=== PATIENT | female | born 1935 | race Caucasian/White ===

== ENCOUNTER 2018-04-15 08:52 | Emergency (ER) | payer MEDICARE, BC ==
[2018-04-15 09:19] VITALS: BP 154/61
--- NOTE | 2018-04-15 09:55 | RAD ---
HISTORY: thumb pain, unknown trauma COMPARISONS: None VIEWS: 7 , Frontal, lateral, and oblique views of the left hand and first digit of the left hand. Evaluation of the fourth digit is limited by metallic jewelry. FINDINGS: BONE DENSITY: Normal. BONES: There is no displaced fracture. JOINTS: There is moderate osteoarthritis of the first CMC joint and to lesser extent of the first interphalangeal joint. ALIGNMENT: There is no dislocation. SOFT TISSUES: Unremarkable. OTHER FINDINGS: There is a punctate radiopaque foreign body in the soft tissues along the volar aspect of the second MCP joint measuring less than 0.1 cm in size. IMPRESSION: 1. OSTEOARTHRITIS. 2. PUNCTATE RADIOPAQUE FOREIGN BODY IN THE SOFT TISSUES ALONG THE VOLAR ASPECT OF THE SECOND MCP JOINT MEASURING LESS THAN 0.1 CM IN SIZE. 3. NO ACUTE OSSEOUS INJURY. IF SYMPTOMS PERSIST, RECOMMEND REPEAT IMAGING.
--- NOTE | 2018-04-15 10:13 | UC ---
Upper Extremity HPI - HPI Summary HPI Summary: Pt presents to with son. Yesterday patient developed some erythema and discomfort at the base of her left thumb. Patient states it is an achy sensation. Worse with movement. Patient with focal edema. No open wounds. No drainage. No trauma. Patient denies wrist or elbow pain. No palmar pain. No analgesia taken. Patient without a history of gout. Patient denies paresthesias or hand weakness. Patient's medications reviewed this visit. - History of Current Complaint Chief Complaint: UCUpperExtremity Stated Complaint: LEFT THUMB COMPLAINT Time Seen by Provider: 04/15/18 09:54 Hx Obtained From: Patient, Family/[employer]atch [place] Cleaner Hx From Patient Unobtainable Due To: Altered Mental Status Pain Intensity: 8 - Allergies/Home Medications Allergies/Adverse Reactions: Allergies Allergy/AdvReac Type Severity Reaction Status Date / Time Sulfa (Sulfonamide Allergy Unknown Verified 04/15/18 09:15 Antibiotics) Reaction Details environmental Allergy See Comment Uncoded 04/15/18 09:15 Home Medications: Home Medications Cholecalciferol TAB* [Vitamin D TAB*] 1,000 unit PO DAILY 04/15/18 [History Confirmed 04/15/18] Docusate CAP* [Colace Cap*] 100 mg PO BID PRN 04/15/18 [History Confirmed ] Levothyroxine TAB* [Synthroid TAB*] 88 mcg PO DAILY 04/15/18 [History Confirmed 04/15/18] Psyllium SIMON* [Metamucil SIMON*] 1 pkt PO DAILY 04/15/18 [History Confirmed ] Quinapril/Hydrochlorothiazide [Quinapril/Hydrochlorothia 20-12.5 mg] 1 tab PO DAILY 04/15/18 [History Confirmed 04/15/18] Rivastigmine PATCH 4.6 MG(NF) [Exelon(NF)] 1 patch TRANSDERM DAILY 04/15/18 [ History Confirmed 04/15/18] Vitamin THERAPEUTIC TAB* [Theragran TAB*] 1 tab PO DAILY 04/15/18 [History Confirmed 04/15/18] PMH/Surg Hx/FS Hx/Imm Hx Previously Healthy: Yes Psychological History: Other Other Psychological History: dementia - Surgical History Surgical History: Yes Surgery Procedure, Year, and Place: Total Hysterectomy, 1976 - Family History Known Family History: Positive: Hypertension - Social History Lives: With Family Alcohol Use: None Substance Use Type: None Smoking Status (MU): Heavy Every Day Tobacco Smoker Amount Used/How Often: 1/2 PPD Length of Time of Smoking/Using Tobacco: Since Age 18 Household Exposure Type: Cigarettes Review of Systems Constitutional: Negative Skin: Other - Erythema ( Musculoskeletal: Other: - Left thumb All Other Systems Reviewed And Are Negative: Yes Physical Exam - Summary Physical Exam Summary: Vital Signs Reviewed: Yes A+Ox3, no distress Eyes: Conjunctiva Clear, BELLE. EOM intact and full ENT: Hearing grossly normal TM x 2 clear, mmoist, uvula midline, no exudate, no erythema Neck: Positive: Supple Respiratory: Positive: No respiratory distress, No accessory muscle use + CTA throughout no w/r Cardiovascular: RRR nl s1, s2 no m/r CBT <2 sec 2+ radial,ulnar CBT < 2 sec all digits abd soft + BS nt/nd no guarding, no distension Musculoskeletal Exam: ALICIA x 4 without difficulty Strength Intact, ROM Intact + flex/ext elbow + pronate/supinat + flex/ext wrist no pain carpals mild discomfort thumb MCP with direct palpation full fle/ext mcp. ip of thumb and 2nd digit Neurological: Positive: Alert, + sensation throughout Psychological: Positive: Normal Response To Family Skin: Positive: no rash, no ecchymosism mild erythema dorsum left thumb MCP no open wound, no abraison, no ecchymosis mild edema dorsum same joint close review and inspection of hand at the area of concern for foreign body an x -ray revealed no open wounds no tenderness no edema no puncture wounds no concern for acute foreign body Triage Information Reviewed: Yes Vital Signs: Initial Vital Signs Temp 97.6 F 04/15/18 09:12 Pulse 72 04/15/18 09:12 Resp 14 04/15/18 09:12 BP 154/61 04/15/18 09:12 Pulse Ox 98 04/15/18 09:12 Diagnostics - Radiology No standard instances Xray Interpretation: Positive (See Comments) - Patient Name: BRENNA ROJAS Medical Record#: [id number] Ordering Physician: Danielle Segovia MD Acct.#: [id number] : 1935 Age: 82 Sex: F Location: [facility] Exam Date: 04/15/18934 ADM Status: REG ER Order Information: THUMB LEFT Accession Number: [id number] CPT: 00366 HISTORY: thumb pain, unknown trauma COMPARISONS: None VIEWS: 7 , Frontal, lateral, and oblique views of the left hand and first digit of the left hand. Evaluation of the fourth digit is limited by metallic jewelry. FINDINGS: BONE DENSITY: Normal. BONES: There is no displaced fracture. JOINTS: There is moderate osteoarthritis of the first CMC joint and to lesser extent of the first interphalangeal joint. ALIGNMENT: There is no dislocation. SOFT TISSUES: Unremarkable. OTHER FINDINGS: There is a punctate radiopaque foreign body in the soft tissues along the volar aspect of the second MCP joint measuring less than 0.1 cm in size. IMPRESSION: 1. OSTEOARTHRITIS. 2. PUNCTATE RADIOPAQUE FOREIGN BODY IN THE SOFT TISSUES ALONG THE VOLAR ASPECT OF THE SECOND MCP JOINT MEASURING LESS THAN 0.1 CM IN SIZE. 3. NO ACUTE OSSEOUS INJURY. IF SYMPTOMS PERSIST, RECOMMEND REPEAT IMAGING. <Electronically signed by Ander Montes MD in OV> 04/15/18951 Dictated By: Ander Montes MD Dictated Date/Time: 04/15/18951 Transcribed Date/Time: 04/15/18949 Copy to: CC: Danielle Segovia MD; Dayanara Hutton MD Imaging - [facility] Imaging [facility]gent [facility] Imaging [facility] [address] [address] ph ) ph ([phone]) ph ([phone]) This report is only to be considered final once signed by the Provider(s) as displayed in the "< Electronically Signed by >" field (s). Absence of a signature indicates the report is in a draft status and still needs to be finalized. In the event this document was created by someone other than the signing Provider, the individual initiating the document will be listed in the "Entered by:" or "Dictated by:" garzon. 1 of 1 Radiology Interpretation Completed By: Radiologist Upper Extremity Course/Dx - Course Course Of Treatment: Patient presents for focal area of erythema and swelling of the left thumb on the dorsum of the hand. Patient's right-hand dominant. Patient denies any trauma. Patient with mild focal tenderness. Patient does have full range of motion. No red streaking no fluctuance. Differential includes early cellulitis versus gout versus tendinitis. Will start patient on antibiotics prophylactically for infection. We'll draw blood work to include a gassy. Recommend patient can take some Motrin 400 mg with food spaced every 6- 8 hours. Patient placed in a splint and recommend follow-up with some comfortable with plan. Strict return precautions discussed. BP elevated - recommend PCp fu - Differential Dx/Diagnosis Provider Diagnoses: left thumb erythema Discharge - Sign-Out/Discharge Documenting (check all that apply): Patient Departure All imaging exams completed and their final reports reviewed: Yes - Discharge Plan Condition: Stable Disposition: HOME Prescriptions: Amoxicillin PO (*) [Amoxicillin 500 MG CAP*] 500 mg PO Q12H #20 cap Patient Education Materials: Cellulitis (ED), Gout (ED) Referrals: Nicanor Sam MD [Medical Doctor] - Dayanara Hutton MD [Primary Care Provider] - Additional Instructions: The doctor that evaluated think that her symptoms are related to gout. However , he also being place an antibiotic in case there is infection as well. Take antibiotics twice a day as prescribed. Exam ox may cause diarrhea. This is normal. Eating yogurt taking probiotics may help. Wear splint as much as possible for comfort and support Okay to apply ice wrapped in a towel 20 minutes 2-3 times a day. You have blood work drawn today. This lab work takes to 3 days to come back. You will receive a call from her care fast food team member if there are concerning results. Elevate her arm to help with swelling and pain. Okay to take ibuprofen (Motrin, Advil) 400 mg every [address] Contact Dr. Sam's office to schedule follow-up appointment this week. Contact Dr. Sam, return here over the emergency department with questions or concerns. - Billing Disposition and Condition Condition: STABLE Disposition: Home
[2018-04-15 13:54] LABS: ABS Basophils 0.1 10^3/ul (0-0.2); ABS Eosinophils 0.4 10^3/ul (0-0.6); ABS Lymphocytes 2.1 10^3/ul (1.0-4.8); ABS Monocytes 1.2 10^3/ul (0-0.8); ABS Neutrophils 6.7 10^3/ul (1.5-7.7); ABS Nucleated RBC 0 10^3/ul; Eosinophil % 3.4 % (0-6); Hematocrit 40 % (35-47); Hemoglobin 13.8 g/dl (12.0-16.0); Mean Corpuscular HGB Conc 34 g/dl (31-36); Mean Corpuscular Hemoglobin 32 pg (27-31); Mean Corpuscular Volume 93 fL (80-97); Mean Platelet Volume 9.1 um3 (7.4-10.4); Nucleated Red Blood Cells % 0.2; Platelet Count 265 10^3/ul (150-450); Red Blood Count 4.35 10^6/ul (4.00-5.40); Red Cell Distribution Width 14 % (10.5-15); White Blood Count 10.4 10^3/ul (3.5-10.8)
== END 2018-04-15 10:30 | disposition home or self-care (01) ==
LOC: UCCORT 08:52
DX: L53.9 Erythematous condition, unspecified (principal); M79.5 Residual foreign body in soft tissue; M18.12 Unilateral primary osteoarthritis of first carpometacarpal joint, left hand; F03.90 Unspecified dementia, unspecified severity, without behavioral disturbance, psychotic disturbance, mood disturbance, and anxiety; F17.210 Nicotine dependence, cigarettes, uncomplicated; Z88.1 Allergy status to other antibiotic agents
CPT/HCPCS: 36415; 80048; 84550; 85025; 99213; G0463

== ENCOUNTER 2018-10-25 08:41 | Emergency (ER) | payer MEDICARE, BC ==
[2018-10-25 09:15] VITALS: BP 137/73
--- NOTE | 2018-10-25 09:21 | UC ---
Abdominal Pain Female HPI - HPI Summary HPI Summary: Per checkroom chief "Per pt's son past 3 days pt. has been complaining of abd pain. Pt has hx of constipation with random use of stool softeners and laxatives. Pt is also in early stages of dementia and eats very little at home." Her son Brings Her in Today with Concern of Several Days of Abdominal Pain. She Also States That She Has Rectal Pressure. She denies bleeding. She takes one stool softener daily, however she is supposed to take 2 daily. She refuses to take 2 daily forspecific reason. Florentino states that she's not a reliable historian because of the dementia. He really doesn't know when her last bowel movement was. She says it was 4 days ago. -She lives with her son In. Her sister also listed with them. However, her sister was recently diagnosed with lung cancer and her family came to take her back to [place] with them on Friday. He reports that his mom has been very distressed since this is all ensued. He does not know how much of that has to do with anything. -She used to weigh 125 pounds about 4 or 5 years ago. She is progressively possibly. Her last weight was 79 pounds as far as he knows. He cooks for her all the time but she doesn't eat anything except for coffee and orange juice. She says she is just not hungry. I asked if I could bring her favorite food right now which she eat it and she replied no. - History of Current Complaint Chief Complaint: UCGI Stated Complaint: CONSTIPATION, RECTAL COMPLAINT Time Seen by Provider: 10/25/18 09:20 Pain Intensity: 9 Allergies/Adverse Reactions: Allergies Allergy/AdvReac Type Severity Reaction Status Date / Time Sulfa (Sulfonamide Allergy Unknown Verified 10/25/18 09:02 Antibiotics) Reaction Details environmental Allergy See Comment Uncoded 10/25/18 09:02 Home Medications: Home Medications Sennosides [Ex-Lax] 30 mg PO DAILY PRN 10/25/18 [History Confirmed 10/25/18] PMH/Surg Hx/FS Hx/Imm Hx Previously Healthy: Yes Endocrine History: Hypothyroidism Cardiovascular History: Hypertension Neurological History: Dementia - Surgical History Surgical History: Yes Surgery Procedure, Year, and Place: Total Hysterectomy, 1976 - Family History Known Family History: Positive: Hypertension, Respiratory Disease - Social History Alcohol Use: None Substance Use Type: None Smoking Status (MU): Light Every Day Tobacco Smoker Amount Used/How Often: 4-5 cigs per day Length of Time of Smoking/Using Tobacco: Since Age 18 Have You Smoked in the Last Year: Yes Household Exposure Type: Cigarettes Review of Systems All Other Systems Reviewed And Are Negative: Yes Constitutional: Positive: Negative Skin: Positive: Negative Eyes: Positive: Negative ENT: Positive: Negative Respiratory: Positive: Negative Cardiovascular: Positive: Negative Gastrointestinal: Positive: Abdominal Pain Genitourinary: Positive: Negative. Negative: Dysuria, Hematuria Motor: Positive: Negative Neurovascular: Positive: Negative Musculoskeletal: Positive: Negative Neurological: Positive: Negative Psychological: Positive: Negative Is Patient Immunocompromised?: No Physical Exam Triage Information Reviewed: Yes Completion Of Physical Exam Limited Due To: Dementia Appearance: No Pain Distress - Lying on exam table controlled up in position., Cachectic Vital Signs: Initial Vital Signs Temp 97 F 10/25/18 09:08 Pulse 99 10/25/18 09:08 Resp 24 10/25/18 09:08 BP 137/73 10/25/18 09:08 Pulse Ox 96 10/25/18 09:08 Eye Exam: Normal ENT Exam: Normal ENT: Positive: Pharynx normal, Other - dry mucous membranes. hard of hearing Neck exam: Normal Neck: Positive: Supple, Nontender, No Lymphadenopathy Respiratory Exam: Normal Respiratory: Positive: Chest non-tender, Lungs clear, No respiratory distress, No accessory muscle use, Decreased breath sounds. Negative: Crackles, Rhonchi, Stridor, Wheezing Cardiovascular Exam: Normal Cardiovascular: Positive: RRR Abdomen Description: Positive: Soft, Other: - very thin abdomen. tender at lower abdomen. she jumped with palpation.. Negative: Distended, Guarding, Peritoneal Signs, Pulsatile Mass, Splenomegaly Bowel Sounds: Positive: Hyperactive Musculoskeletal Exam: Normal Neurological Exam: Normal Psychological Exam: Normal Skin Exam: Normal Abd Pain Female Course/Dx - Course Course Of Treatment: abdominal tenderness w/ anorexia and FTT w/ further 6 lb wt loss. Needs CT abd for eval r/o mass/obstruction etc. she has been distraught b/c her sister who has been her roommate for many years was recently dx'd with cancer and moved to [place]. This has been quite stressful to her which may also contribute to sx. However, organic cause needs to be evaluated. - Differential Dx/Diagnosis Differential Diagnosis: Bowel Obstruction, Constipation Provider Diagnosis: Abdominal pain, Failure to thrive Discharge - Sign-Out/Discharge Documenting (check all that apply): Patient Departure All imaging exams completed and their final reports reviewed: No Studies - Discharge Plan Condition: Stable Disposition: HOME-RECOMMEND TO ED Patient Education Materials: Abdominal Pain (ED), Failure to Thrive in Older Adults (ED) Referrals: Dayanara Hutton MD [Primary Care Provider] - 3 Days Additional Instructions: We talked about getting further evaluation through the ER for the abdominal pain. My recommendation is a CT scan because of ismael tenderness, appetite loss and further weight loss. Her low weight with a further 6 lb weight loss is concerning and consideration to admission should be given. - Billing Disposition and Condition Condition: STABLE Disposition: Home-Recommend to ED
== END 2018-10-25 09:47 | disposition home health service (06) ==
LOC: UCCORT 08:41
DX: R10.32 Left lower quadrant pain (principal); R10.31 Right lower quadrant pain; R62.7 Adult failure to thrive; F03.90 Unspecified dementia, unspecified severity, without behavioral disturbance, psychotic disturbance, mood disturbance, and anxiety; K59.00 Constipation, unspecified; F17.210 Nicotine dependence, cigarettes, uncomplicated; I10 Essential (primary) hypertension; Z88.2 Allergy status to sulfonamides; Z91.09 Other allergy status, other than to drugs and biological substances
CPT/HCPCS: 99212; G0463

== ENCOUNTER 2019-03-15 15:32 | Emergency (ER) | payer MEDICARE, BC ==
[2019-03-15 15:52] VITALS: BP 155/86
--- NOTE | 2019-03-15 16:09 | ED ---
Abdominal Pain/Female - HPI Summary HPI Summary: 83 yr old female with the complaint of right upper abdominal pain, epigastric pain. Onset two days ago. The patient denies SOB, CP, nausea, vomiting. She had some diarrhea two days ago. The patient has a history of COPD, dementia and smoking. - History of Current Complaint Chief Complaint: UCGeneralIllness Stated Complaint: RIGHT SIDE PAIN Time Seen by Provider: 03/15/19 15:55 Pain Intensity: 0 Allergies/Adverse Reactions: Allergies Allergy/AdvReac Type Severity Reaction Status Date / Time Sulfa (Sulfonamide Allergy Unknown Verified 03/15/19 15:53 Antibiotics) Reaction Details environmental Allergy See Comment Uncoded 03/15/19 15:53 Home Medications: Home Medications Aspirin [Aspirin Childrens 81 MG] 81 mg PO DAILY 03/15/19 [History Confirmed ] Fluticasone NASAL SPRAY 50MCG* [Flonase NASAL SPRAY 50MCG*] 1 spray BOTH NARES DAILY 03/15/19 [History Confirmed 03/15/19] Polyethylene Glycol [Polyox Wsr-301] 1 pow XX DAILY 03/15/19 [History Confirmed 03/15/19] Rivastigmine CAP(NF) [Exelon (NF)] 1.5 mg PO BID 03/15/19 [History Confirmed ] PMH/Surg Hx/FS Hx/Imm Hx Endocrine/Hematology History: Reports: Hx Thyroid Disease Cardiovascular History: Reports: Hx Hypertension Respiratory History: Reports: Hx Chronic Obstructive Pulmonary Disease (COPD) - Surgical History Surgery Procedure, Year, and Place: Total Hysterectomy, 1976 Infectious Disease History: No Infectious Disease History: Denies: Traveled Outside the [place] in Last 30 Days - Family History Known Family History: Positive: Hypertension, Respiratory Disease - Social History Alcohol Use: None Substance Use Type: Reports: None Smoking Status (MU): Heavy Every Day Tobacco Smoker Amount Used/How Often: 4-5 cigs per day Length of Time of Smoking/Using Tobacco: Since Age 18 Have You Smoked in the Last Year: Yes Review of Systems Constitutional: Negative Positive: Abdominal Pain All Other Systems Reviewed And Are Negative: Yes Physical Exam Triage Information Reviewed: Yes Vital Signs On Initial Exam: Initial Vitals Temp Pulse Resp BP Pulse Ox 98.0 F 74 16 155/86 99 03/15/19 15:45 03/15/19 15:45 03/15/19 15:45 03/15/19 15:45 03/15/19 15:45 Vital Signs Reviewed: Yes Appearance: Positive: Well-Appearing, No Pain Distress Skin: Positive: Warm, Skin Color Reflects Adequate Perfusion Head/Face: Positive: Normal Head/Face Inspection Eyes: Positive: EOMI ENT: Positive: TMs normal Neck: Positive: Nontender Respiratory/Lung Sounds: Positive: Clear to Auscultation, Breath Sounds Present Cardiovascular: Positive: RRR. Negative: Murmur Abdomen Description: Negative: Nontender - mild tender right upper quadrant., Distended Musculoskeletal: Positive: Strength/ROM Intact. Negative: Edema Left, Edema Right Neurological: Positive: Sensory/Motor Intact, Alert, Oriented to Person Place, Time, CN Intact II-III, Speech Normal Psychiatric: Positive: Normal Diagnostics - Vital Signs Vital Signs Temp Pulse Resp BP Pulse Ox 03/15/19 15:45 98.0 F 74 16 155/86 99 - Laboratory Lab Statement: Any lab studies that have been ordered have been reviewed, and results considered in the medical decision making process. Abdominal Pain Fem Course/Dx - Course Course Of Treatment: 83 yr old with abdominal pain, HTN. [facility]. The patient did not want an ambulance, and the patient son wants to drive her. - Diagnoses Provider Diagnoses: Hypertension, Right upper quadrant pain Discharge - Sign-Out/Discharge Documenting (check all that apply): Patient Departure All imaging exams completed and their final reports reviewed: No Studies - Discharge Plan Condition: Good Disposition: HOME Patient Education Materials: Acute Abdominal Pain (DC) Referrals: Dayanara Hutton MD [Primary Care Provider] - Additional Instructions: YOU NEED TO GO TO THE ER FOR FURTHER EVALUATION NOW. DO NOT DELAY. - Billing Disposition and Condition Condition: GOOD Disposition: Home
== END 2019-03-15 16:07 | disposition home or self-care (01) ==
LOC: UCCORT 15:32
DX: I10 Essential (primary) hypertension (principal); R10.11 Right upper quadrant pain; F17.210 Nicotine dependence, cigarettes, uncomplicated
CPT/HCPCS: 99212; G0463

== ENCOUNTER 2019-04-08 10:46 | Emergency (ER) | payer MEDICARE, BC ==
[2019-04-08 11:26] VITALS: BP 169/66
--- NOTE | 2019-04-08 11:34 | UC ---
Hand/Wrist HPI - HPI Summary HPI Summary: 83-year-old female who complains of right wrist pain with swelling over the past 2 days. The daughter states she does a lot of repetitive motion getting in and out of her son's truck but has had no known injury. - History Of Current Complaint Chief Complaint: UCUpperExtremity Stated Complaint: RT ARM PAIN Time Seen by Provider: 04/08/19 11:31 Hx Obtained From: Patient, Family/Tax Director ?: No Onset/Duration: Gradual Onset Severity Initially: Mild Severity Currently: Moderate Pain Intensity: 10 Character Of Pain: Dull, Aching Aggravating Factor(s): Movement, Flexion, Extension, Internal/External Rotation Alleviating Factor(s): Nothing Associated Signs And Symptoms: Positive: Swelling, Redness - Allergies/Home Medications Allergies/Adverse Reactions: Allergies Allergy/AdvReac Type Severity Reaction Status Date / Time Sulfa (Sulfonamide Allergy Unknown Verified 04/08/19 11:18 Antibiotics) Reaction Details environmental Allergy See Comment Uncoded 04/08/19 11:18 PMH/Surg Hx/FS Hx/Imm Hx Previously Healthy: Yes Endocrine History: Thyroid Disease Cardiovascular History: Hypertension Respiratory History: COPD Neurological History: Dementia - Surgical History Surgical History: Yes Surgery Procedure, Year, and Place: Total Hysterectomy, 1976 - Family History Known Family History: Positive: Hypertension, Respiratory Disease - Social History Alcohol Use: None Substance Use Type: None Smoking Status (MU): Heavy Every Day Tobacco Smoker Amount Used/How Often: 4-5 cigs per day Length of Time of Smoking/Using Tobacco: Since Age 18 Have You Smoked in the Last Year: Yes Household Exposure Type: Cigarettes Review of Systems All Other Systems Reviewed And Are Negative: Yes Skin: Positive: Other - Mild swelling and redness right wrist. Motor: Positive: Decreased ROM - Pain with range of motion right wrist. Neurovascular: Positive: Negative Musculoskeletal: Positive: Decreased ROM Is Patient Immunocompromised?: No Physical Exam Triage Information Reviewed: Yes Appearance: Well-Appearing, No Pain Distress, Well-Nourished Vital Signs: Initial Vital Signs Temp 97 F 04/08/19 11:22 Pulse 73 04/08/19 11:22 Resp 20 04/08/19 11:22 BP 169/66 04/08/19 11:22 Pulse Ox 99 04/08/19 11:22 Vital Signs Reviewed: Yes Musculoskeletal: Positive: Strength Intact - Pain on palpation right wrist. Good peripheral pulses neuro sensation capillary refill. There is mild swelling and redness to the area however not warm to touch., No Edema Neurological: Positive: Alert, Muscle Tone Normal Psychological: Positive: Normal Response To Family Skin: Positive: Other - See above notes. Hand/Wrist Course/Dx - Course Course Of Treatment: Right wrist x-ray:FINDINGS: BONE DENSITY: There is diffuse osteopenia. BONES: There is no displaced fracture. JOINTS: There is mild to moderate osteoarthritis of the first CMC and STT joints. ALIGNMENT: There is no dislocation. SOFT TISSUES: There is peripheral arterial calcification. OTHER FINDINGS: None. IMPRESSION: OSTEOPENIA. OSTEOARTHRITIS. NO ACUTE OSSEOUS INJURY. IF SYMPTOMS PERSIST, RECOMMEND REPEAT IMAGING This may be more of a tendinitis therefore I'm going to give her a cock-up splint and follow-up with the orthopedist if no improvement in 4 or 5 days. She can apply heat to the sore area and avoid repetitive motion. - Differential Dx/Diagnosis Provider Diagnosis: Tendonitis of wrist, right Discharge - Sign-Out/Discharge Documenting (check all that apply): Patient Departure All imaging exams completed and their final reports reviewed: Yes - Discharge Plan Condition: Fair Disposition: HOME Patient Education Materials: Tendinitis (ED) Referrals: Marcell Brush MD [Primary Care Provider] - Mary Ann Vick MD [Medical Doctor] - Additional Instructions: Apply heat to the sore area 4-6 times a day, wear the cock-up splint for comfort , avoid repetitive motion, follow-up with the orthopedist if no improvement in 4 or 5 days. - Billing Disposition and Condition Condition: FAIR Disposition: Home
== END 2019-04-08 12:20 | disposition home or self-care (01) ==
LOC: UCCORT 10:46
DX: M77.9 Enthesopathy, unspecified (principal); I10 Essential (primary) hypertension; F17.210 Nicotine dependence, cigarettes, uncomplicated
CPT/HCPCS: 99212; G0463

== ENCOUNTER 2019-09-03 14:33 | Emergency (ER) | payer MEDICARE, BC ==
[2019-09-03 14:54] VITALS: BP 170/77
--- NOTE | 2019-09-03 15:10 | UC ---
Eye Complaint HPI - HPI Summary HPI Summary: 83-year-old female who noticed a white lump to the skin near the inner canthus of her right eye day. She states she has some sharp shooting pain around that area. No recent illness. - History of Current Complaint Chief Complaint: UCEye Stated Complaint: RIGHT EYE PAIN, HEADACHE Time Seen by Provider: 09/03/19 14:51 Hx Obtained From: Patient, Family/Radio [employer] Ground Hx From Patient Unobtainable Due To: Dementia - Patient lives with her son. ?: No Onset/Duration: Gradual Onset, Other - Patient noted the area this morning. Timing: Constant Severity Initially: Mild Severity Currently: Mild Pain Intensity: 0 Location of Injury: Other - No injury Character: Sharp - Patient states she has some sharp shooting pain around that area. Aggravating Factor(s): Nothing Alleviating Factor(s): Nothing Associated Signs And Symptoms: Positive: Negative - Allergies/Home Medications Allergies/Adverse Reactions: Allergies Allergy/AdvReac Type Severity Reaction Status Date / Time Sulfa (Sulfonamide Allergy Unknown Verified 09/03/19 14:54 Antibiotics) Reaction Details environmental Allergy See Comment Uncoded 09/03/19 14:54 Home Medications: Home Medications Aspirin [Adult Low Dose Aspirin EC] 81 mg PO DAILY 09/03/19 [History Confirmed 09/03/19] Bisacodyl [Dulcolax] 5 mg PO BID 09/03/19 [History Confirmed 09/03/19] Cholecalciferol (Vitamin D3) [Vitamin D-3] 2,000 unit PO DAILY 09/03/19 [ History Confirmed 09/03/19] Levothyroxine Sodium 50 mcg PO SEE INSTRUCTIONS 09/03/19 [History Confirmed 06/13] Levothyroxine Sodium 75 mcg PO SEE INSTRUCTIONS 09/03/19 [History Confirmed 06/13] Multivitamin [Multivitamins] 1 cap PO DAILY 09/03/19 [History Confirmed 09/03/19 ] Quinapril HCl 2 mg PO DAILY 09/03/19 [History Confirmed 09/03/19] Rivastigmine Tartrate [Rivastigmine] 4.5 mg PO BID 09/03/19 [History Confirmed 09/03/19] PMH/Surg Hx/FS Hx/Imm Hx Previously Healthy: Yes Endocrine History: Thyroid Disease Cardiovascular History: Hypertension Respiratory History: COPD Neurological History: Dementia - Surgical History Surgical History: Yes Surgery Procedure, Year, and Place: Total Hysterectomy, 1976 - Family History Known Family History: Positive: Hypertension, Respiratory Disease - Social History Occupation: Retired - Patient lives with her adult son. Lives: With Family Alcohol Use: None Substance Use Type: None Smoking Status (MU): Heavy Every Day Tobacco Smoker Amount Used/How Often: 4-5 cigs per day Length of Time of Smoking/Using Tobacco: Since Age 18 Have You Smoked in the Last Year: Yes Household Exposure Type: Cigarettes Review of Systems All Other Systems Reviewed And Are Negative: Yes Skin: Positive: Other - Patient noticed a white lump on the medial bridge of her nose and the inner canthus of her right eye. Neurological: Positive: Other - Patient states she has some sharp shooting pain around that area. Is Patient Immunocompromised?: No Physical Exam Triage Information Reviewed: Yes Appearance: Well-Appearing, No Pain Distress, Well-Nourished Vital Signs: Initial Vital Signs Temp 98 F 09/03/19 14:50 Pulse 79 09/03/19 14:50 Resp 16 09/03/19 14:50 BP 170/77 09/03/19 14:50 Pulse Ox 98 09/03/19 14:50 Vital Signs Reviewed: Yes Eyes: Positive: Conjunctiva Clear Musculoskeletal: Positive: Strength Intact, ROM Intact, Other: - Good peripheral pulses, neuro sensation capillary refill. Good arm and leg strength against resistance. Neurological: Positive: Alert - Cranial nerves II through XII are intact., Muscle Tone Normal Psychological: Positive: Normal Response To Family, Age Appropriate Behavior Skin: Positive: Other - Patient has a white papule near the medial aspect of the bridge of her nose near the inner canthus of the right eye. I was able to express the exudate and it has resolved. Eye Complaint Course/Dx - Course Course Of Treatment: The patient is comfortable here and in no distress. I think this area was a simple papule which was easily expressed. She ambulates without difficulty and has no weakness. According to her son she is acting per her norm. - Differential Dx/Diagnosis Provider Diagnosis: Papule of skin Discharge ED - Sign-Out/Discharge Documenting (check all that apply): Patient Departure All imaging exams completed and their final reports reviewed: No Studies - Discharge Plan Condition: Good Disposition: HOME Referrals: Marcell Brush MD [Primary Care Provider] - Additional Instructions: May apply warm moist compresses to the area. Give Tylenol for headache. Definite follow-up with your primary care provider if no improvement or if worsening symptoms in 3 or 4 days. - Billing Disposition and Condition Condition: GOOD Disposition: Home
== END 2019-09-03 15:25 | disposition home or self-care (01) ==
LOC: UCCORT 14:33
DX: R23.8 Other skin changes (principal); H57.89 Other specified disorders of eye and adnexa; F17.210 Nicotine dependence, cigarettes, uncomplicated; I10 Essential (primary) hypertension; J44.9 Chronic obstructive pulmonary disease, unspecified; F03.90 Unspecified dementia, unspecified severity, without behavioral disturbance, psychotic disturbance, mood disturbance, and anxiety; E07.9 Disorder of thyroid, unspecified; Z79.890 Hormone replacement therapy; Z79.82 Long term (current) use of aspirin; Z88.2 Allergy status to sulfonamides; Z91.09 Other allergy status, other than to drugs and biological substances
CPT/HCPCS: 99211; G0463